=== PATIENT | male | born 1985 | race Two or more races ===

== ENCOUNTER 2020-09-04 19:51 | Emergency (ER) | payer OTHER ==
[~2020-09-04] VITALS: Ht 170.2 cm; Wt 95.3 kg
[2020-09-05] MEDS ORDERED: TETANUS-DIPTH-ACEL PERTUSSIS 0.5ML SYR Tdap IM ONE (01:45)
[2020-09-05] MEDS ORDERED: ONDANSETRON ODT 4 MG TAB PO ONE (01:45)
[2020-09-05] MEDS ORDERED: ACETAMINOPHEN/CODEINE#3 (300/30mg) TAB PO ONE (01:45)
[2020-09-05] MEDS ORDERED: BACITRACIN TOP OINT 1 UD PKG TOP ONE (03:00)
[2020-09-05 05:29] VITALS: BP 131/83
== END 2020-09-05 05:34 | disposition home or self-care (01) ==
LOC: ER 19:51
DX: S51.811A Laceration without foreign body of right forearm, initial encounter (principal); S51.851A Open bite of right forearm, initial encounter; W54.0XXA Bitten by dog, initial encounter; Y93.89 Activity, other specified; Y92.89 Other specified places as the place of occurrence of the external cause; Y99.8 Other external cause status
CPT/HCPCS: 12002; 73090; 90471; 90715; 99283; Q0162